=== PATIENT | female | born 1980 | race Hispanic/Latino ===

== ENCOUNTER → 2023-01-24 | Outpatient (CLI) | payer OTHER | END | disposition home or self-care (01) | LOC: RAH 11:14 | PROVIDERS: ATTEND Physician Assistant Medical | DX: Z12.31 Encounter for screening mammogram for malignant neoplasm of breast (principal) | CPT/HCPCS: 77067 ==

== ENCOUNTER → 2024-02-01 | Outpatient (CLI) | payer OTHER | END | disposition home or self-care (01) | LOC: RAH 08:25 | PROVIDERS: ATTEND Physician Assistant Medical | DX: Z12.31 Encounter for screening mammogram for malignant neoplasm of breast (principal); R92.333 Mammographic heterogeneous density, bilateral breasts; R92.1 Mammographic calcification found on diagnostic imaging of breast | CPT/HCPCS: 77067 ==

== ENCOUNTER → 2025-05-16 | Outpatient (CLI) | payer BC ==
--- NOTE | 2025-05-17 10:43 | HMCIMG ---
EXAM: US Pelvis, Complete. CLINICAL HISTORY: Ovulation bleeding. TECHNIQUE: Transvaginal pelvic ultrasound (complete) with image documentation. COMPARISON: None provided. FINDINGS: ENDOMETRIUM: 7 mm. UTERUS/CERVIX: The uterus measures 8.4 x 4.9 x 6.3 cm. Normal contour. No fibroid detected. RIGHT OVARY: 1.9 x 1.1 x 2 cm with normal flow. Normal follicles. No adnexal mass. LEFT OVARY: Left ovary is obscured. FREE FLUID: No free fluid. IMPRESSION: 1. Normal pelvic ultrasound, to the extent visualized. /Thom
== END | disposition home or self-care (01) ==
LOC: RAH 13:19
PROVIDERS: ATTEND Obstetrics & Gynecology
DX: Z12.31 Encounter for screening mammogram for malignant neoplasm of breast (principal); N92.3 Ovulation bleeding
CPT/HCPCS: 76830; 77067